=== PATIENT | male | born 1985 | race Caucasian/White ===

== ENCOUNTER 2018-06-23 13:22 | Emergency (ER) | payer BC, OTHER ==
[2018-06-23] MEDS ORDERED: NA CHLORIDE 0.9% 1,000 ML ONE ×2 (13:44→13:51)
[2018-06-23] MEDS ORDERED: FAMOTIDINE 20 MG/2 ML VIAL IV ONE ×2 (13:44→13:51)
--- NOTE | 2018-06-23 14:52 | ER ---
Nurse's Notes [facility] Name: Thony David Age: 32 yrs Sex: Male : 1985 Arrival Date: 06/23/2018 Time: 13:27 Bed 4 Private MD: Diagnosis: Urticaria, unspecified;Acute allergic reaction Presentation: 06/23 13:22 Presenting complaint: EMS states: allergic reaction, rash, redness to body started sv about 1300, Solumedrol 125 mg IVP given, no wheezing. BP 96/64 HR-79. Benadryl 50 mg PO given by spouse before EMS arrived. Pt reports that he ate lunch and then took an Augmentin PO that he had left over for his sore throat, states that he has had that in the past with no reaction. Transition of care: patient was not received from another setting of care. Onset: The symptoms/episode began/occurred suddenly, 20 minute(s) ago. Anaphylaxis evaluation, no signs or symptoms of anaphylaxis were noted. Onset of symptoms was June 23, 2018 at 13:00. Risk Assessment: Do you want to hurt yourself or someone else? Patient reports no desire to harm self or others. Initial Sepsis Screen: Does the patient meet any 2 criteria? No. Patient's initial sepsis screen is negative. Does the patient have a suspected source of infection? No. Patient's initial sepsis screen is negative. Care prior to arrival: Medication(s) given: Solumedrol 125 mg IVP IV initiated. 20 GA, in the left forearm. 13:22 Method Of Arrival: EMS: [facility] sv 13:22 Acuity: FREDI 3 sv Triage Assessment: 13:22 General: Appears in no apparent distress. uncomfortable, well groomed, well developed, sv Behavior is cooperative, appropriate for age, anxious. Pain: Denies pain. EENT: Oral mucosa is dry. Neuro: Level of Consciousness is awake, alert, obeys commands, Oriented to person, place, time, situation, Moves all extremities. Full function Speech is normal. Respiratory: Airway is patent Respiratory effort is even, unlabored, Respiratory pattern is regular, symmetrical, Denies shortness of breath labored breathing, air hunger. Derm: Skin is red. Musculoskeletal: Range of motion: intact in all extremities. Historical: - Allergies: 13:51 No Known Allergies; sv - PMHx: 13:51 None; sv - PSHx: 13:51 None; sv - Immunization history:: Adult Immunizations up to date. - Social history:: Smoking status: Patient/guardian denies using tobacco. - Ebola Screening: : No symptoms or risks identified at this time. Screenin:30 Abuse screen: Denies threats or abuse. Denies injuries from another. Nutritional sv screening: No deficits noted. Tuberculosis screening: No symptoms or risk factors identified. Fall Risk None identified. Assessment: 14:00 Reassessment: Patient appears in no apparent distress at this time. No changes from sv previously documented assessment. Patient and/or family updated on plan of care and expected duration. Pain level reassessed. Patient is alert, oriented x 3, equal unlabored respirations, skin warm/dry/pink. 15:00 Reassessment: Patient appears in no apparent distress at this time. No changes from sv previously documented assessment. Patient and/or family updated on plan of care and expected duration. Pain level reassessed. Patient is alert, oriented x 3, equal unlabored respirations, skin warm/dry/pink. Vital Signs: 13:30 BP 117 / 48; Pulse 90; Resp 16; Temp 97.6; Pulse Ox 98% ; Weight 108.86 kg; Height 6 sv ft. 1 in. (185.42 cm); Pain 0/10; 14:41 BP 111 / 65; Pulse 78; Resp 15; Pulse Ox 100% ; sv 13:30 Body Mass Index 31.66 (108.86 kg, 185.42 cm) sv ED Course: 13:22 Maintain EMS IV. Dressing intact. Good blood return noted. Site clean \T\ dry. Gauge \T\ sv site: 20G left forearm. 13:27 Patient arrived in ED. rn 13:27 Caleb Diez MD is Attending Physician. rn 13:30 Michelle Fragoso RN is Primary Nurse. sv 13:30 Arm band placed on Patient placed in an exam room, on a stretcher, on band head saw operator, sv on pulse oximetry. 13:30 Patient has correct armband on for positive identification. Bed in low position. Call sv light in reach. Side rails up X 1. Adult w/ patient. client resource specialist on. Pulse ox on. NIBP on. Door closed. Warm blanket given. Head of bed elevated. 13:30 Initial lab(s) drawn, by me, sent to lab. sv 13:50 Triage completed. sv 15:08 No provider procedures requiring assistance completed. IV discontinued, intact, sv bleeding controlled, No redness/swelling at site. Pressure dressing applied. Administered Medications: 13:30 Drug: NS 0.9% 1000 ml Route: IV; Rate: 1000 ml; Site: left forearm; sv 14:30 Follow up: Response: No adverse reaction; IV Status: Completed infusion; IV Intake: sv 1000ml 13:30 Drug: Pepcid 20 mg Route: IVP; Site: left forearm; sv 13:56 Follow up: Response: No adverse reaction sv Intake: 14:30 IV: 1000ml; Total: 1000ml. sv Outcome: 14:51 Discharge ordered by . rn 15:08 Patient left the ED. sv 15:08 Discharged to home ambulatory, with family. sv 15:08 Condition: stable 15:08 Discharge instructions given to patient, family, Instructed on discharge instructions, follow up and referral plans. medication usage, Demonstrated understanding of instructions, follow-up care, medications, Prescriptions given X 2. Signatures: Michelle Fragoso, RN RN Caleb Diez MD MD rn
--- NOTE | 2018-06-23 14:52 | EDPHYS ---
Physician Documentation [facility] Name: Thony David Age: 32 yrs Sex: Male : 1985 Arrival Date: 06/23/2018 Time: 13:27 Bed 4 Private MD: ED Physician Caleb Diez HPI: 06/23 13:45 This 32 yrs old Male presents to ER via Unassigned with complaints of rash. rn 13:45 The patient presents with itching, rash, redness of skin. Onset: The symptoms/episode rn began/occurred just prior to arrival. Associated signs and symptoms: Pertinent positives: hives, rash, shortness of breath. Possible causes: antibiotics, augmentin, laundry detergent. At home the patient or guardian has treated the symptoms with Benadryl, steroids. Severity of symptoms: At their worst the symptoms were moderate in the emergency department the symptoms have improved. Historical: - Allergies: 13:51 No Known Allergies; sv - PMHx: 13:51 None; sv - PSHx: 13:51 None; sv - Immunization history:: Adult Immunizations up to date. - Social history:: Smoking status: Patient/guardian denies using tobacco. - Ebola Screening: : No symptoms or risks identified at this time. ROS: 13:53 Constitutional: Negative for fever, chills, and weight loss, Eyes: Negative for injury, rn pain, redness, and discharge, Neck: Negative for injury, pain, and swelling, Cardiovascular: Negative for chest pain, palpitations, and edema, Respiratory: + sob Abdomen/GI: + nausea MS/Extremity: Negative for injury and deformity, Skin: + redness and itching Neuro: Negative for headache, weakness, numbness, tingling, and seizure. Exam: 13:53 Constitutional: This is a well developed, well nourished patient who is awake, alert, rn appears anxious Head/Face: Normocephalic, atraumatic. Eyes: Pupils equal round and reactive to light, extra-ocular motions intact. Lids and lashes normal. Conjunctiva and sclera are non-icteric and not injected. Cornea within normal limits. Periorbital areas with no swelling, redness, or edema. ENT: dry MM, no stridor, no oral lesions Cardiovascular: Regular rate and rhythm, No pulse deficits. Respiratory: Lungs have equal breath sounds bilaterally, clear to auscultation. No increased work of breathing, no retractions or nasal flaring. Abdomen/GI: soft, non-tender Skin: Warm, dry, + diffuse erythema and excoriations, no sloughing MS/ Extremity: Pulses equal, no cyanosis. Neurovascular intact. Full, normal range of motion. Equal circumference. Neuro: Awake and alert, GCS 15, oriented to person, place, time, and situation. Cranial nerves II-XII grossly intact. Motor strength 5/5 in all extremities. Sensory grossly intact. Cerebellar exam normal. Normal gait. Vital Signs: 13:30 BP 117 / 48; Pulse 90; Resp 16; Temp 97.6; Pulse Ox 98% ; Weight 108.86 kg; Height 6 sv ft. 1 in. (185.42 cm); Pain 0/10; 14:41 BP 111 / 65; Pulse 78; Resp 15; Pulse Ox 100% ; sv 13:30 Body Mass Index 31.66 (108.86 kg, 185.42 cm) sv MDM: 13:27 Patient medically screened. rn 14:50 Differential diagnosis: angioedema, non IgE mediated drug reaction urticaria, allergic rn reaction. Data reviewed: vital signs, nurses notes, and as a result, I will discharge patient. Counseling: I had a detailed discussion with the patient and/or guardian regarding: the historical points, exam findings, and any diagnostic results supporting the discharge/admit diagnosis, the need for outpatient follow up, to return to the emergency department if symptoms worsen or persist or if there are any questions or concerns that arise at home. Response to treatment: the patient's symptoms have markedly improved after treatment, the patient is now symptom free, and as a result, I will discharge patient. Special discussion: I discussed with the patient/guardian in detail that at this point there is no indication for admission to the hospital. It is understood, however, that if the symptoms persist or worsen the patient needs to return immediately for re-evaluation. 06/23 13:28 Order name: [place] Screen Profile; Complete Time: 14:16 rn 06/23 13:28 Order name: IV Start; Complete Time: 13:31 rn Administered Medications: 13:30 Drug: NS 0.9% 1000 ml Route: IV; Rate: 1000 ml; Site: left forearm; sv 14:30 Follow up: Response: No adverse reaction; IV Status: Completed infusion; IV Intake: sv 1000ml 13:30 Drug: Pepcid 20 mg Route: IVP; Site: left forearm; sv 13:56 Follow up: Response: No adverse reaction sv Disposition: 06/23/18 14:51 Discharged to Home. Impression: Urticaria, unspecified, Acute allergic reaction. - Condition is Stable. - Discharge Instructions: Drug Allergy, Hives. - Prescriptions for Prednisone 20 mg Oral Tablet - take 3 tablet by ORAL route once daily for 5 days; 15 tablet. EpiPen 0.3 mg Injection auto- injector - inject 1 pen by INTRAMUSCULAR route one time As needed Inject into the outer portion of the thigh, through clothing if necessary. Indicated in the emergency treatment of allergic reactions; 1 packet. - Medication Reconciliation Form, Thank You Letter, Antibiotic Education, Prescription Opioid Use form. - Follow up: Private Physician; When: As needed; Reason: Recheck today's complaints, Re-evaluation by your physician. - Problem is new. - Symptoms have improved. Signatures: Dispatcher [employer] Michelle Parekh RN RN Caleb Diez MD MD golf tournament consultant: (The following items were deleted from the chart) 15:08 14:51 06/23/2018 14:51 Discharged to Home. Impression: Urticaria, unspecified; Acute sv allergic reaction. Condition is Stable. Forms are Medication Reconciliation Form, Thank You Letter, Antibiotic Education, Prescription Opioid Use. Follow up: Private Physician; When: As needed; Reason: Recheck today's complaints, Re-evaluation by your physician. Problem is new. Symptoms have improved. rn
== END 2018-06-23 15:08 | disposition home or self-care (01) ==
LOC: ER 13:22
DX: L50.0 Allergic urticaria (principal)
CPT/HCPCS: 36415; 86308; 96361; 96374; 99284; J7030